=== PATIENT | male | born 1955 | race Caucasian/White ===

== ENCOUNTER 2025-01-21 09:10 | Outpatient (CLI) | payer MEDICARE, SELFPAY ==
--- NOTE | ~2025-01-21 | CT_ITS ---
CT of the Abdomen and Pelvis: Indication: Hematuria Technique: 2.5 mm axial scans were obtained through the abdomen and pelvis prior to and following in travenous administration of 130 cc of Omnipaque 350. Dose reduction technique was used on this scan b y utilizing automated exposure control and iterative reconstruction technique. The dose-length produc t (DLP) was 1674.96 mGy-cm. Findings: Scans through the lung bases demonstrate chronic scarring or atelectasis at the right midd le lobe and lingula. Hepatic cyst present. Gallstone present. The spleen, pancreas, adrenals and kidneys are within normal limits. No evidence of aortic aneurysm. No lymphadenopathy. No bowel obstruction or bowel wall thickening. There is no evidence to suggest acute appendicitis. Images through the pelvis were performed. There is diffuse urinary bladder wall thickening. Prostate gland is significantly enlarged. No ascites. Impression: Diffuse urinary bladder wall thickening. Correlate for cystitis or chronic urinary bladder wall trabe culation. Enlarged prostate gland. Cholelithiasis. Reviewed, dictated and finalized at location . Impression: Diffuse urinary bladder wall thickening. Correlate for cystitis or chronic urin juan c bladder wall trabeculation. Enlarged prostate gland. Cholelithiasis.
--- OUTSIDE RECORDS SUMMARY | 2025-01-21 09:17 | XMS_ITS | Continuity of Care Document ---
Author Organization [facility] Address [address] [place] [address] [address] [place] [address] Phone Care Team Providers Care Clay Thrower Name Role Phone Gilbert OD, Tima Unavailable Unavailable Advance Directives Directive Yes / No Effective Date File Name No Information Encounters Encounter Description Practice Location Reason(s) For Visit Diagnoses Date Provider Providers Copied on Encounter [facility], [address], [place], [place], [id number], [place] tel:[phone] [facility] No Information Apr-0 6-200 1 Gilbert OD Tima. [address] , [address], [place], [address], [place]. tel:[phone] Family History Family Member Type Diagnosis Age At Onset No Information Payers Payer name Insurance type Covered republican ID Authoriza marleen(s) [employer] [facility] [id number] Social History Type Description Quantity Date Captured Comments Sex Male Smoking Status No Information Chief Complaint And Reason For Visit No Information Reason For Referral Reason For Referral No Information History Of Present Illness Encounter Date Complaint History Of Prese nt Illness No Information Functional Status Date Functional Assessmen t No Information Instructions Date Instruction Additional Infor mation No Information Assessments Type Assessment Date No Information Patient Care Teams Name Effective Dates (start - stop) Status Members No Information
--- OUTSIDE RECORDS SUMMARY | 2025-01-21 09:17 | XMS_ITS | Data Portability ---
[facility] Address [address] [place] [address] Care Team Providers Care Customer Development Representative Name Role Phone MICAELAMeli PORTIA Primary Care Provider Unavailab le Assessment No assessment recorded. Plan of Treatment Reminders Order Date Submit Date Provider Last Modified By Organization Details Last Modified Time Details Appointments None recorded. Lab cobalamin and folate panel, serum 2024 025 [facility], [address] [place] [address], [address], 13:08:24 TSH + free T4, serum 2024 025 [facility], [address] [place] [address], [place], [address], 13:08:20 CBC w/ auto diff 2024 025 [facility], [address] [place] [address], [place], [address], 13:08:27 BMP, serum or plasma 2024 025 [facility], [address] [place] [address] 2, [place], [address], 5 13:08:23 hepatic function panel, serum 2024 025 [facility], [address] [place] [address] 2, [place], [address], 5 13:08:22 lipid panel, serum or plasma 2024 025 [facility], [address] [facility], [address], [place], [address], 5 13:08:21 culture, urine 2024 025 [facility], [address] [facility], [facility] [address], [place], [address], 5 07:07:45 urinalysis , complete 2024 025 [facility], [address] [facility], [address], [place], [address], 5 13:08:26 PSA, total, serum or plasma 2024 025 [facility], [address] [facility], [facility] [address], [place], [address], 5 13:08:28 HbA1c (hemoglobi n A1c), blood 2024 025 [facility], [address] [facility], [facility] 2, [place], [address], 5 13:08:25 Referral dermatolog ist referral 2024 025 [email or web address] Not available 12:10:43 Procedures colonoscop y screening (PROC) 2024 025 [email or web address] [facility], [address], [address], [place], [address], 12:50:15 Surgeries None recorded. Imaging None recorded. Medication Orders None recorded. Patient TargetsNo targets recorded. Patient InstructionsNo instructions recorded. 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 Referring Physician: Portia Arias, Internal Medicine, Encounter Date: 11/16/2024 Results Created Date Observation Date Name Description Value Unit Range Abnormal Flag Note LastModifiedBy Organization Detail LastModifiedTime 01/04/20 25 01/04/2025 TSH+F REE T4 TSH 1.620 uIU/m L 0.450- 4.500 Not Available [facility] ([facility]) [address] [place], [address], 01/04/2025 13:08:20 01/04/20 25 01/04/2025 TSH+F REE T4 T4,free(dire ct) 1.34 NG/dL 0.82-1 .77 Not Available [facility] ([facility]) [address] [facility], [place], [address], 01/04/2025 13:08:20 01/04/20 25 01/04/2025 LIPID PANEL WITH LDL/H DL RATIO cholesterol, total 173 mg/dL 100-19 9 Not Available [facility] ([facility]) [address] [facility], [place], [address], 01/04/2025 13:08:21 01/04/20 25 01/04/2025 LIPID PANEL WITH LDL/H DL RATIO triglyceride s 100 mg/dL 0-149 Not Available [facility] ([facility]) [address] [place], [address], 01/04/2025 13:08:21 01/04/20 25 01/04/2025 LIPID PANEL WITH LDL/H DL RATIO HDL cholesterol 48 mg/dL >39 Not Available [facility]) [address] [place], [address], 01/04/2025 13:08:21 01/04/20 25 01/04/2025 LIPID PANEL WITH LDL/H DL RATIO VLDL cholesterol jose 18 mg/dL 5-40 Not Available [facility] ([facility]) [address] [place], [address], 01/04/2025 13:08:21 01/04/20 25 01/04/2025 LIPID PANEL WITH LDL/H DL RATIO LDL chol calc ([facility]) 107 mg/dL 0-99 above high normal Not Available [facility] ([facility]) [address] [facility] [place], [address], 01/04/2025 13:08:21 01/04/20 25 01/04/2025 LIPID PANEL WITH LDL/H DL RATIO LDL/HDL ratio 2.2 ratio 0.0-3. 6 LDL/H DL Ratio Men Women 1/2 Avg.R isk 1.0 1.5 Avg.R isk 3.6 3.2 2X Avg.R isk 6.2 5.0 3X Avg.R isk 8.0 6.1 Not Available [facility] ([facility]) [address] [facility] [place], [address], 01/04/2025 13:08:21 01/04/20 25 01/04/2025 HEPAT IC FUNCT ION PANEL (7) protein, total 6.3 g/dL 6.0-8. 5 Not Available [facility] ([facility]) [address] [place], [address], 01/04/2025 13:08:22 01/04/20 25 01/04/2025 HEPAT IC FUNCT ION PANEL (7) albumin 3.8 g/dL 3.8-4. 8 Not Available [facility] ([facility]) [address] [place], [address], 01/04/2025 13:08:22 01/04/20 25 01/04/2025 HEPAT IC FUNCT ION PANEL (7) bilirubin, total 0.6 mg/dL 0.0-1. 2 Not Available [facility] ([facility]) [address] [place], [address], 01/04/2025 13:08:22 01/04/20 25 01/04/2025 HEPAT IC FUNCT ION PANEL (7) bilirubin, direct 0.21 mg/dL 0.00-0 .40 Not Available [facility] ([facility]) [address] [place], [address], 01/04/2025 13:08:22 01/04/20 25 01/04/2025 HEPAT IC FUNCT ION PANEL (7) alkaline phosphatase 76 IU/L 44-121 Not Available [facility] ([facility]) [address] [place], [address], 01/04/2025 13:08:22 01/04/20 25 01/04/2025 HEPAT IC FUNCT ION PANEL (7) AST (SGOT) 16 IU/L 0-40 Not Available [facility] ([facility]) [address] [place], [address], 01/04/2025 13:08:22 01/04/20 25 01/04/2025 HEPAT IC FUNCT ION PANEL (7) ALT (SGPT) 12 IU/L 0-44 Not Available [facility] ([facility]) [address] [place], [address], 01/04/2025 13:08:22 01/04/20 25 01/04/2025 BASIC METAB OLIC PANEL (8) glucose 100 mg/dL 70-99 above high normal Not Available [facility] ([facility]) [address] [place], [address], 01/04/2025 13:08:23 01/04/20 25 01/04/2025 BASIC METAB OLIC PANEL (8) BUN 12 mg/dL 8-27 Not Available [facility] ([facility]) [address] [place], [address], 01/04/2025 13:08:23 01/04/20 25 01/04/2025 BASIC METAB OLIC PANEL (8) creatinine 1.32 mg/dL 0.76-1 .27 above high normal Not Available [facility] ([facility]) [address] [place], [address], 01/04/2025 13:08:23 01/04/20 25 01/04/2025 BASIC METAB OLIC PANEL (8) eGFR 58 mL/mi n/1.7 3 >59 below low normal Not Available [facility] ([facility]) [address] [facility] [place], [address], 01/04/2025 13:08:23 01/04/20 25 01/04/2025 BASIC METAB OLIC PANEL (8) BUN/creatini ne ratio 9 10-24 below low normal Not Available [facility] ([facility]) [address] [facility] [place], [address], 01/04/2025 13:08:23 01/04/20 25 01/04/2025 BASIC METAB OLIC PANEL (8) sodium 141 mmol/ L 134-14 4 Not Available [facility] ([facility]) [address] [facility] [place], [address], 01/04/2025 13:08:23 01/04/20 25 01/04/2025 BASIC METAB OLIC PANEL (8) potassium 4.9 mmol/ L 3.5-5. 2 Not Available [facility] ([facility]) [address] [place], [address], 01/04/2025 13:08:23 01/04/20 25 01/04/2025 BASIC METAB OLIC PANEL (8) chloride 104 mmol/ L 96-106 Not Available [facility] ([facility]) [address] [place], [address], 01/04/2025 13:08:23 01/04/20 25 01/04/2025 BASIC METAB OLIC PANEL (8) carbon dioxide, total 22 mmol/ L 20-29 Not Available [facility] ([facility]) [address] [place], [address], 01/04/2025 13:08:23 01/04/20 25 01/04/2025 BASIC METAB OLIC PANEL (8) calcium 9.6 mg/dL 8.6-10 .2 Not Available [facility] ([facility]) [address], [place], [address], 01/04/2025 13:08:23 01/04/20 25 01/04/2025 MICRO SCOPI C EXAMI NATIO N WBC >30 /hpf 0-5 abnormal Not Available [facility] ([facility]) [address], [place], [address], 01/04/2025 13:08:24 01/04/20 25 01/04/2025 MICRO SCOPI C EXAMI NATIO N RBC 3-10 /hpf 0-2 abnormal Not Available [facility] ([facility]) [address] [facility], [place], [address], 01/04/2025 13:08:24 01/04/20 25 01/04/2025 MICRO SCOPI C EXAMI NATIO N epithelial cells (non renal) None seen /hpf 0-10 Not Available [facility] ([facility]) [address] [facility], [place], [address], 01/04/2025 13:08:24 01/04/20 25 01/04/2025 MICRO SCOPI C EXAMI NATIO N casts None seen /lpf nonese en Not Available [facility] ([facility]) [address] [facility], [place], [address], 01/04/2025 13:08:24 01/04/20 25 01/04/2025 MICRO SCOPI C EXAMI NATIO N bacteria Few nonese en/few Not Available [facility] ([facility]) [address] [facility], [place], [address], 01/04/2025 13:08:24 01/04/20 25 01/04/2025 VITAM IN B12 AND FOLAT E vitamin B12 280 pg/mL 232-12 45 Not Available [facility] ([facility]) [address] [facility], [place], [address], 01/04/2025 13:08:24 01/04/20 25 01/04/2025 VITAM IN B12 AND FOLAT E folate (folic acid), serum 3.8 NG/mL >3.0 A serum folat e luis ntrat ion of less than 3.1 ng/mL is consi dered to repre sent clini jose defic iency . Not Available [facility] ([facility]) [address] [place], [address], 01/04/2025 13:08:24 01/04/20 25 01/04/2025 HEMOG LOBIN A1C hemoglobin A1C 5.2 % 4.8-5. 6 Predi abete s: 5.7 - 6.4 Diabe jo: >6.4 Glyce valerio contr ol for adult s with diabe jo: <7.0 Not Available [facility] ([facility]) [address] [facility], [place], [address], 01/04/2025 13:08:25 01/04/20 25 01/04/2025 URINA LYSIS , COMPL ETE specific gravity 1.014 1.005- 1.030 Not Available [facility] ([facility]) [address] [place], [address], 01/04/2025 13:08:26 01/04/20 25 01/04/2025 URINA LYSIS , COMPL ETE pH 6.5 5.0-7. 5 Not Available [facility] ([facility]) [address] [place], [address], 01/04/2025 13:08:26 01/04/20 25 01/04/2025 URINA LYSIS , COMPL ETE urine-color YELLOW yellow Not Available [facility] ([facility]) [address] [place], [address], 01/04/2025 13:08:26 01/04/20 25 01/04/2025 URINA LYSIS , COMPL ETE appearance TURBID clear abnormal Not Available [facility] ([facility]) [address] [place], [address], 01/04/2025 13:08:26 01/04/20 25 01/04/2025 URINA LYSIS , COMPL ETE WBC esterase 3+ negati ve abnormal Not Available [facility] ([facility]) [address] [facility], [place], [address], 01/04/2025 13:08:26 01/04/20 25 01/04/2025 URINA LYSIS , COMPL ETE protein 1+ negati ve/tra ce abnormal Not Available [facility] ([facility]) [address] [place], [address], 01/04/2025 13:08:26 01/04/20 25 01/04/2025 URINA LYSIS , COMPL ETE glucose NEGATI VE negati ve Not Available [facility] ([facility]) [address] [place], [address], 01/04/2025 13:08:26 01/04/20 25 01/04/2025 URINA LYSIS , COMPL ETE ketones NEGATI VE negati ve Not Available [facility] ([facility]) [address] [place], [address], 01/04/2025 13:08:26 01/04/20 25 01/04/2025 URINA LYSIS , COMPL ETE occult blood 1+ negati ve abnormal Not Available [facility] ([facility]) [address] [place], [address], 01/04/2025 13:08:26 01/04/20 25 01/04/2025 URINA LYSIS , COMPL ETE bilirubin NEGATI VE negati ve Not Available [facility] ([facility]) [address] [place], [address], 01/04/2025 13:08:26 01/04/20 25 01/04/2025 URINA LYSIS , COMPL ETE urobilinogen ,semi-qn 0.2 mg/dL 0.2-1. 0 Not Available [facility] ([facility]) [address] [facility], [place], [address], 01/04/2025 13:08:26 01/04/20 25 01/04/2025 URINA LYSIS , COMPL ETE nitrite, urine NEGATI VE negati ve Not Available [facility] ([facility]) [address] [facility], [place], [address], 01/04/2025 13:08:26 01/04/20 25 01/04/2025 URINA LYSIS , COMPL ETE microscopic examination SEE BELOW: Micro scopi c was indic ated and was perfo rmed. Not Available [facility] ([facility]) [address] [facility], [place], [address], 01/04/2025 13:08:26 01/04/20 25 01/04/2025 CBC WITH DIFFE RENTI AL/PL ATELE T WBC 6.6 x10e3 /uL 3.4-10 .8 Not Available [facility] ([facility]) [address] [facility], [place], [address], 01/04/2025 13:08:27 01/04/20 25 01/04/2025 CBC WITH DIFFE RENTI AL/PL ATELE T RBC 4.89 x10e6 /uL 4.14-5 .80 Not Available [facility] ([facility]) [address] [place], [address], 01/04/2025 13:08:27 01/04/20 25 01/04/2025 CBC WITH DIFFE RENTI AL/PL ATELE T hemoglobin 15.9 g/dL 13.0-1 7.7 Not Available [facility] ([facility]) [address] [place], [address], 01/04/2025 13:08:27 01/04/20 25 01/04/2025 CBC WITH DIFFE RENTI AL/PL ATELE T hematocrit 49.3 % 37.5-5 1.0 Not Available [facility] ([facility]) [address] [facility], [place], [address], 01/04/2025 13:08:27 01/04/20 25 01/04/2025 CBC WITH DIFFE RENTI AL/PL ATELE T MCV 101 fL 79-97 above high normal Not Available [facility] ([facility]) [address] [facility], [place], [address], 01/04/2025 13:08:27 01/04/20 25 01/04/2025 CBC WITH DIFFE RENTI AL/PL ATELE T MCH 32.5 pg 26.6-3 3.0 Not Available [facility] ([facility]) [address] [facility], [place], [address], 01/04/2025 13:08:27 01/04/20 25 01/04/2025 CBC WITH DIFFE RENTI AL/PL ATELE T MCHC 32.3 g/dL 31.5-3 5.7 Not Available [facility] ([facility]) [address] [facility], [place], [address], 01/04/2025 13:08:27 01/04/20 25 01/04/2025 CBC WITH DIFFE RENTI AL/PL ATELE T RDW 13.0 % 11.6-1 5.4 Not Available [facility] ([facility]) [address] [place], [address], 01/04/2025 13:08:27 01/04/20 25 01/04/2025 CBC WITH DIFFE RENTI AL/PL ATELE T platelets 325 x10e3 /uL 150-45 0 Not Available [facility] ([facility]) [address] [facility], [place], [address], 01/04/2025 13:08:27 01/04/20 25 01/04/2025 CBC WITH DIFFE RENTI AL/PL ATELE T neutrophils 65 % notest ab. Not Available [facility] ([facility]) [address] [facility], [place], [address], 01/04/2025 13:08:27 01/04/20 25 01/04/2025 CBC WITH DIFFE RENTI AL/PL ATELE T lymphs 22 % notest ab. Not Available [facility] ([facility]) [address] [facility], [place], [address], 01/04/2025 13:08:27 01/04/20 25 01/04/2025 CBC WITH DIFFE RENTI AL/PL ATELE T monocytes 9 % notest ab. Not Available [facility] ([facility]) [address] [facility], [place], [address], 01/04/2025 13:08:27 01/04/20 25 01/04/2025 CBC WITH DIFFE RENTI AL/PL ATELE T eos 3 % notest ab. Not Available [facility] ([facility]) [address] [facility], [place], [address], 01/04/2025 13:08:27 01/04/20 25 01/04/2025 CBC WITH DIFFE RENTI AL/PL ATELE T basos 1 % notest ab. Not Available [facility] ([facility]) [address] [place], [address], 01/04/2025 13:08:27 01/04/20 25 01/04/2025 CBC WITH DIFFE RENTI AL/PL ATELE T neutrophils (absolute) 4.3 x10e3 /uL 1.4-7. 0 Not Available [facility] ([facility]) [address] [facility], [place], [address], 01/04/2025 13:08:27 01/04/20 25 01/04/2025 CBC WITH DIFFE RENTI AL/PL ATELE T lymphs (absolute) 1.4 x10e3 /uL 0.7-3. 1 Not Available [facility] ([facility]) [address] [place], [address], 01/04/2025 13:08:27 01/04/20 25 01/04/2025 CBC WITH DIFFE RENTI AL/PL ATELE T monocytes(ab solute) 0.6 x10e3 /uL 0.1-0. 9 Not Available [facility] ([facility]) [address] [facility], [place], [address], 01/04/2025 13:08:27 01/04/20 25 01/04/2025 CBC WITH DIFFE RENTI AL/PL ATELE T eos (absolute) 0.2 x10e3 /uL 0.0-0. 4 Not Available [facility] ([facility]) [address] [place], [address], 01/04/2025 13:08:27 01/04/20 25 01/04/2025 CBC WITH DIFFE RENTI AL/PL ATELE T baso (absolute) 0.0 x10e3 /uL 0.0-0. 2 Not Available [facility] ([facility]) [address] [place], [address], 01/04/2025 13:08:27 01/04/20 25 01/04/2025 CBC WITH DIFFE RENTI AL/PL ATELE T immature granulocytes 0 % notest ab. Not Available [facility] ([facility]) [address] [place], [address], 01/04/2025 13:08:27 01/04/20 25 01/04/2025 CBC WITH DIFFE RENTI AL/PL ATELE T immature grans (abs) 0.0 x10e3 /uL 0.0-0. 1 Not Available [facility] ([facility]) [address] [place], [address], 01/04/2025 13:08:27 01/04/20 25 01/04/2025 PROST ATE-S PECIF IC AG prostate specific Ag 2.6 NG/mL 0.0-4. 0 Lynette ECLIA metho dolog y. Accor ding to the Ameri can Urolo gical Assoc iatio n, Serum PSA shoul d decre ase and remai n at undet ectab le level s after radic al prost atect elle. The AUA defin es bioch emica l recur rence as an initi al PSA value 0.2 ng/mL or great er follo wed by a subse quent confi rmato ry PSA value 0.2 ng/mL or great er. Value s obtai bandar with diffe rent assay metho ds or kits canno t be used inter joseph eably . Resul ts canno t be inter prete d as absol kalispel evide nce of the prese nce or absen ce of krystal ingram se. Not Available [facility] ([facility]) [address] [place], [address], 01/04/2025 13:08:28 01/04/20 25 01/05/2025 URINE CULTU RE, ROUTI NE urine culture, routine FINAL REPORT Not Available [facility] ([facility]) [address] [place], [address], 01/05/2025 07:07:45 01/04/2001/05/2025 URINE CULTU RE, ROUTI NE result 1 COMMEN T Mixed uroge nital dee Less than 10,00 0 colon ies/m L Not Available [facility] ([facility]) [address] [place], [address], 01/05/2025 07:07:45 Result Notes None recorded. Problems Name Problem SNOMED Code Status Onset Date Resolution Date Notes Provider Name and Address Organization Details Recorded Time Body mass index 20-24 - normal 285880574 Active 025 Nell Loo MA null, [facility] 11/16/2024 12:18:44 Problem Notes None recorded. Procedures Surgical History Date Name Laterality Status Provider Name and Address Organization Details Recorded Time Hernia Repair completed Nell Loo MA [facility] 11/16/2024 12:22:37 Imaging Results None recorded. Procedure Notes None recorded. Medical Equipment None Reported. Allergies No known drug allergies Medications Name Sig Start Date Stop Date Status Note LastModified by Organization Details LastModified Time ciprofloxacin 500 mg tablet TAKE 1 TABLET BY MOUTH EVERY 12 HOURS active Not Available Not Available No t Available amoxicillin 875 mg tablet 11/16 completed Not Available Not Available Not Available Vitals Date Recorded Systolic And Diastolic Systolic And Diastolic Provider Name and Address Organization Details Last Updated DateTime 11/16/2024 130/90 mm[Hg] 120/80 mm[Hg] KACIE Davis Attn: Accounting,[address] [facility], [place], [address], [facility] 11/16/2024 12:55:21 Date Recorded Body weight Respiratory rate Body mass index (BMI) Body height Oxygen saturation Oxygen saturation in Arterial blood by Pulse oximetry Heart rate Systolic And Diastolic Provider Name and Address Organization Details Last Updated DateTime 62566.3 2 g 18 /min 24.6 kg/m2 178.44 cm 96 % 96 % 73 /min 138/82 mm[Hg] Nell Loo MA [facility] 12:19:58 Social History Question Answer Notes LastModified by Organizat ion Details LastModified Time Tobacco Smoking Status Never Smoker Nell Loo MA null, [facility] 11/16/2024 12:24:16 Do You Have An Advance Directive? No Information not available 11/16/2024 Are You Blind Or Do You Have Difficulty Seeing? Yes Readers Information not available 11/16/2024 What Is Your Level Of Caffeine Consumption? Moderate Soda/coffee /tea Information not available 11/16/2024 In The 14 Days Before Symptom Onset, Have You Had Close Contact With A Laboratory-confir med COVID-19 While That Case Was Ill? No Information not available 11/16/2024 In The 14 Days Before Symptom Onset, Have You Had Close Contact With A Person Who Is Under Investigation For COVID-19 While That Person Was Ill? No Information not available 11/16/2024 Have You Been To An Area Known To Be High Risk For COVID-19? No Information not available 11/16/2024 Are You Deaf Or Do You Have Serious Difficulty Hearing? Yes Hearing Aids Information not available 11/16/2024 What Type Of Diet Are You Following? REGULAR Information not available 11/16/2024 Are There Any Guns Present In Your Home? No Information not available 11/16/2024 What Was The Date Of Your Most Recent Tobacco Screening? 11/16/2024 Information not available 11/16/2024 Do You Use Your Seat Belt Or Car Seat Routinely? Yes Information not available 11/16/2024 Do You Have Smoke And Carbon Monoxide Detectors In Your Home? Yes Information not available 11/16/2024 Do You Use Sunscreen Routinely? No Information not available 11/16/2024 Has Tobacco Cessation Counseling Been Provided? No Information not available 11/16/2024 Sex: Male Functional Status Question Answer Note LastModified by Organizat ion Details LastModified Time Do you use any illicit or recreational drugs? No Information not available 11/16/2024 Do you or have you ever used any other forms of tobacco or nicotine? No Information not available 11/16/2024 What is your level of alcohol consumption? Occasional Information not available 11/16/2024 Are you currently employed? No Information not available 11/16/2024 Are you able to care for yourself? Yes Information n ot available 11/16/2024 What is your exercise level? Occasional Information not available 11/16/2024 Mental Status None recorded. Family History Relationship Description Onset Age of this Age Resolved Age Notes LastModified by Organization Details LastModified Time Mother Family history of breast cancer [email or web address] Not available 2024 12:24:06 Medical History No medical history recorded. Immunizations Vaccine Type Date Status Note Provider Nam e and Address Organization Details Recorded Time COVID-19, mRNA, LNP-S, PF, 30 mcg/0.3 mL dose 09/19/2020 completed Not Available [facility] 11:46:48 COVID-19, mRNA, LNP-S, PF, 30 mcg/0.3 mL dose 10/15/2020 completed Not Available [facility] 11:46:48 Past Encounters Encounter ID Performer Location Encounter Start Date Encounter Closed Date Diagnosis/Indication Diagnosis SNOMED-CT Code Diagnosis ICD10 Code Diagnosis Note [id number] Joseluis Abad MD [facility] [place] [address] [place] [address] 11/16/2024 11:44:29 11/16/2024 14:44:59 Body mass index 20-24 - normal 191255924 Z68.24 24.6 Lower urin juan c tract symptoms 520307626 R39.9 Some urinary frequency at times with some stream changes. We will check a urine with culture for baseline Screening for malignant neoplasm of prostate 205609648 Z12.5 Routine PSA ordered Diabetes m ellitus screening 403734035 Z13.1 A1c ordered for diabetes risk assessment Cholesterol screening 27 7579422 Z13.220 Fasting lipids due Long-term current use of drug therapy 269024117 Z79.899 Routine kidney liver blood counts thyroid and vitamin B12 ordered Screening for malignant neoplasm of colon 455525301 Z12.11 Refer for a colonoscop y screening Lesion of skin of nose 2132551649 3690520 L98.9 Refer to dermatolog y for evaluation of skin lesion on nose specifical ly Adult heal th examination 388673684 Z00.00 New patient annual wellness exam completed Health Concerns Section Related Observation LastModified by Organization Detai ls LastModified Time None Recorded Concern Status LastModified by Organization Details LastModified Time None Recorded Advance Directives Directive N: Payers Insurance Date Sequence Insurance Name Policy Number Policy Arceo Covered Member ID Arceo Member ID Guarantor Name 04/10/2020 2 [place] Rosendo Corley [id number] Rosendo Corley 11/01/2024 1 [place] [facility] Rosendo Corley [id number] Rosendo Corley 11/01/2024 1 [place] Rosendo Corley [id number] Rosendo Corley 12/06/2024 1 [facility] (MEDICARE REPLACEMENT/A DVANTAGE - HMO) [id number] Rosendo Corley [id number] Rosendo Corley Notes Date Note Type Note Provider Name and Address Organization Details Recorded Time 11/16/2024 text/html Patient is new patient here to establish with a PCP. He is interested in routine lab work. He has no specific complaints for the provider today KACIE Davis Attn: [employer],[address] [place], [address], [place] - [facility] 12/03/2024 13:46:30
--- OUTSIDE RECORDS SUMMARY | 2025-01-21 09:17 | XMS_ITS | Clinical Summary ---
Author Organization [facility] Address [address] [place] [id number] Care Team Providers Care Smash Hand Name Role Phone Unavailable Primary Care Provider Unavailabl e Allergies No known active allergies Medications No known medications Active Problems No known active problems Resolved Problems Problem Noted Date Diagnosed Date Resolved Date Physical exam 07/13/2020 07/17/2020 Family History Medical History Relation Comments Liver cancer Father Breast Cancer Mother Relation Status Comments Father Mother Social History Tobacco Use Types Packs/Day Years Used Date Smoking Tobacco: Every Day Cigars Smokeless Tobacco: Never Alcohol Use Standard Drinks/Week Comments Yes 0 (1 standard drink = 0.6 oz pur e alcohol) PHQ-2 Answer Date Recorded PHQ-2 Score - If the patient scores above 3, please move on to questions 3-9 0 07/13/2020 Sex and Gender Information Value Date Recorded Sex Assigned at Not on file Legal Sex Male 9:12 AM [employer] Gender Identity Not on file Sexual Orientation Not on file Last Filed Vital Signs Vital Sign Reading Time Taken Comments Blood Pressure 122/76 07/13/2020 10:07 AM [employer] Pulse 64 07/13/2020 10:07 AM [employer] Temperature 36.4 C (97.5 F) 07/13/2020 10:07 AM [employer] Respiratory Rate 18 07/13/2020 10:07 AM [employer] Oxygen Saturation 98% 07/13/2020 10:07 AM [employer] Inhaled Oxygen Concentration - - Weight 87.5 kg (193 lb) 07/13/2020 10:07 AM [employer] Height 177.8 cm (5' 10) 07/13/2020 10:07 AM [employer] Body Mass Index 27.69 07/13/2020 10:07 AM [employer] Plan of Treatment Health Maintenance Due Date Last Done Comments Colorectal Cancer Screening Colonoscopy (10 Years) 1955 Hepatitis C 1971 DTaP, Tdap and Td Vaccines ( 1 - Tdap) 1972 Pneumococcal Vaccine: 50+ Ye ars (1 of 2 - PCV) 1972 Zoster Vaccines (1 of 2) 2003 Annual Medicare Wellness Visit 2018 COVID-19 Vaccine (1 - 2023-2 5 season) 2024 RSV Immunization or 60+ Years (1 - 1-dose 75+ series) 2028 Meningococcal B Vaccine Aged Out No l onger eligible based on patient's age to complete this topic Meningococcal Vaccine Aged Out No penny soraya eligible based on patient's age to complete this topic RSV Immunizations Under 20 Months Aged Out No longer eligible based on patient's age to complete this topic Insurance [address] [address]
[2025-01-21 09:50] LABS: Estimated Glomerular Filt Rate 54
== END 2025-01-21 09:11 | disposition home or self-care (01) ==
PROVIDERS: PCP Physician Assistant; Visit Provider Physician Assistant
DX: R93.5 Abnormal findings on diagnostic imaging of other abdominal regions, including retroperitoneum (principal); N40.0 Benign prostatic hyperplasia without lower urinary tract symptoms; K80.20 Calculus of gallbladder without cholecystitis without obstruction; R31.29 Other microscopic hematuria
CPT/HCPCS: 74178; Q9967